=== PATIENT | female | born 1985 | race Caucasian/White ===

== ENCOUNTER 2017-09-10 09:57 | Inpatient (IN) | payer BC ==
[2017-09-10] VITALS (20 sets, daily range): BP systolic 119–160; BP diastolic 68–89
[~2017-09-10] VITALS: Ht 165.1 cm; Wt 94.7 kg
[2017-09-10 11:16] LABS: EOSINOPHIL (%) 1.1 % (0-5); EOSINOPHIL COUNT 0.1 K/uL (0-0.3); IMMATURE GRANULOCYTE (%) 2.4 % (0.0-0.7); IMMATURE GRANULOCYTE COUNT 0.2 K/uL; LYMPHOCYTE COUNT 1.7 K/uL (1.0-2.8); MCH 31.3 PG (29.0-34.0); MCHC 34.7 G/DL (30.0-36.0); MEAN PLAT.VOLUME 12.8 uM^3 (9.5-12.4); MONOCYTE (%) 8.5 % (3-12); MONOCYTE COUNT 0.8 K/uL (0-0.8); NEUTROPHIL (%) 67.9 % (45-76); NRBC (%) 0.3 /100 WBC (0-0); PLATELET COUNT 118 K/uL (156-360); RBC DIS.WIDTH-CV 14.2 % (11.8-14.6); RBC DIS.WIDTH-SD 46.5 % (39-53); WHITE BLOOD COUNT 8.8 K/uL (4.1-10.2)
[2017-09-10 11:34] LABS: UR CREATININE CONCENTRATION 48.6 MG/DL
[2017-09-10 11:39] LABS: ANION GAP 9 MEQ/L (2-14); CHLORIDE 107 MEQ/L (99-109); POTASSIUM 4.3 MEQ/L (3.7-5.4); SAMPLE HEMOLYSIS CHECK 0; SAMPLE ICTERIC CHECK 0; SAMPLE LIPEMIA CHECK 0; SODIUM 138 MEQ/L (136-147); TOTAL BILIRUBIN 0.3 MG/DL (0.0-1.0)
[2017-09-10] MEDS ORDERED: PRENATAL TABLE1 EACH PO (11:39)
[2017-09-10] MEDS ORDERED: VENTOLIN HFA18 GM IH (11:40)
[2017-09-10 11:44] LABS: ALKALINE PHOSPHATASE 221 IU/L (3-129); GFR ESTIMATE (CALCULATED) > 59 mL/min/; GLUCOSE 64 mg/dL (70-99); UREA NITROGEN (BUN) 12 mg/dL (9-23)
[2017-09-11] VITALS (28 sets, daily range): BP systolic 114–168; BP diastolic 58–98
[2017-09-11] MEDS ORDERED: MOTRIN800 MG PO (07:16)
[2017-09-12 03:40] VITALS: BP 131/73
[2017-09-12 08:50] VITALS: BP 139/86
[2017-09-12 16:30] VITALS: BP 145/91
[2017-09-13 07:30] VITALS: BP 134/80
[2017-09-13 12:20] VITALS: BP 138/81
[2017-09-13 15:24] VITALS: BP 142/84
== END 2017-09-13 20:10 | disposition home or self-care (01) | DRG 775 ==
LOC: LDRP-OP 09:57 → 2WEST 09:59
PROVIDERS: Nurse Practitioner
PROC: 3E0P7VZ Introduction of Hormone into Female Reproductive, Via Natural or Artificial Opening (ICD-10-PCS; principal; 2017-09-10)
PROC: 10E0XZZ Delivery of Products of Conception, External Approach (ICD-10-PCS; 2017-09-11)
PROC: 3E0R3BZ Introduction of Anesthetic Agent into Spinal Canal, Percutaneous Approach (ICD-10-PCS; 2017-09-11)
PROC: 00HU33Z Insertion of Infusion Device into Spinal Canal, Percutaneous Approach (ICD-10-PCS; 2017-09-11)
PROC: 0HQ9XZZ Repair Perineum Skin, External Approach (ICD-10-PCS; 2017-09-11)
DX: O70.0 First degree perineal laceration during delivery (principal); O14.04 Mild to moderate pre-eclampsia, complicating childbirth; O69.81X0 Labor and delivery complicated by cord around neck, without compression, not applicable or unspecified; O77.0 Labor and delivery complicated by meconium in amniotic fluid; Z3A.39 39 weeks gestation of pregnancy; Z37.0 Single live birth
CPT/HCPCS: 80053; 82570; 84156; 85025; 90686; C1755; G0378; J0595; J3010; J7120